=== PATIENT | male | born 1940 | race Caucasian/White ===

== ENCOUNTER → 2024-02-03 10:46 | Outpatient (REF) | payer MEDICARE, SELFPAY | LOC: RAD 10:46 | PROVIDERS: ATTENDING PHYSICIAN Internal Medicine Critical Care Medicine; FAMILY PHYSICIAN Physician Assistant Medical; REFERRING PHYSICIAN Internal Medicine Cardiovascular Disease | DX: R91.1 Solitary pulmonary nodule (principal) | CPT/HCPCS: 71250 ==

== ENCOUNTER → 2024-07-26 06:26 | Day surgery (SDC) | payer MEDICARE, SELFPAY | LOC: GI 06:26 | PROVIDERS: ATTENDING PHYSICIAN Surgery | DX: Z12.11 Encounter for screening for malignant neoplasm of colon (principal); R19.5 Other fecal abnormalities; D12.3 Benign neoplasm of transverse colon | CPT/HCPCS: 45385; 88305 ==

== ENCOUNTER 2025-01-15 16:03 | Emergency (ER) | payer MEDICARE, SELFPAY ==
[2025-01-15 16:08] VITALS: BP 171/86
--- NOTE | 2025-01-15 17:15 | ED.MUSCINJ ---
HPI-Injury
General
Chief Complaint: Musculo-Skeletal Complaint
Time Seen by Provider: 01/15/25 17:03
History of Present Illness-Injury
Initial Injury comments:
Patient presents to the emergency department with left knee pain after injury. States he was walking down the steps and felt a pop in the left knee. Since then he feels swelling in the knee and difficulty bearing weight. States he was having some
pain in that knee throughout the week but it was only mild. Denies fevers or chills. Denies calf swelling, chest pain or shortness of breath
Past History
Past History
ED Past Medical History: CAD, Cancer (Prostate cancer), HTN, Hypercholesterolemia and Other (BPH)
ED Past Surgical History: Cardiac (cath w/ stents)
Social History
Tobacco: Former smoker
Personal: Single
Living: alone
Employment: Employed
Phy Exam
Physical Exam
Physical Exam:
General: No acute distress
Head: NCAT
Neck, Normal in appearance, no swelling
Respiratory: No Respiratory distress
Abdomen: No distension
Ext: Left knee without any large effusion. There is pain with deep flexion and varus stressing of the knee. There is no laxity. Bindu and drawer testing is negative. Straight leg raise is intact. Pulses sensation and motor function all intact
Neuro: DE LEÓN, AOx4
Psych: Normal affect
Skin: Normal color
Injury Course
Orders/Labs/Results
Orders:
Orders
01/15/25 16:12
CR Knee - Left 4 Or More View* Urgent
Comment:
Reason For Exam: Injury
*Critical Care Note
Total Time (30-74mins, 75-104mins- exclusive of procedures): Not Applicable
ED Attending Note
ED Attending Note
ED Attending Note:
No fracture seen on x-ray. Suspect ligamentous or meniscus injury. Instructed to ice, elevate, apply compression to the knee and follow-up with orthopedics as an outpatient
-
Portions of this chart may have been created with voice recognition software.� Occasional wrong word or��sound alike� substitutions may have occurred due to the inherent limitations of voice recognition software.
Discharge Plan
Departure
Patient Disposition: Home (Routine Discharge)
Date of Disposition: 01/15/25
Time of Disposition: 18:32
Patient with high blood pressure during this ER visit?: Yes
Discharge Problem:
Knee sprain
Instructions: Knee Sprain (DC)
Prescriptions:
No Action
aspirin 81 MG tablet,delayed release (DR/EC)
81 mg PO QPM
metoprolol succinate 25 MG tablet extended release 24 hr
12.5 mg PO DAILY
multivitamin with folic acid [Tab-A-Carlos] 1 TABLET tablet
1 tab PO DAILY
coenzyme Q10 [Co Q-10] 100 MG capsule
100 mg PO DAILY
biotin 5 mg Tablet
5 mg PO DAILY
ascorbic acid (vitamin C) [Vitamin C] 500 mg Tablet
500 mg PO DAILY
tamsulosin 0.4 mg Capsule
0.4 mg PO QPM
acetaminophen [Tylenol] 325 mg Tablet
650 mg PO Q4HPRN PRN (Reason: mild pain)
lisinopril 40 mg Tablet
40 mg PO DAILY
azithromycin 500 mg tablet
500 mg PO DAILY 2 Days Qty: 5 0RF
cefdinir 300 mg capsule
300 mg PO BID Qty: 10 0RF
guaifenesin [Mucinex] 600 mg Tablet Extended Release 12hr
1,200 mg PO Q12 Qty: 14 0RF
Eliquis 5 mg tablet
5 mg PO BID Qty: 60 0RF
Rx Instructions:
take 10mg BID starting evening dose 11/06 for 11 more doses.
starting 11/12 decrease to 5mg BID
ferrous sulfate 324 mg (65 mg iron) tablet,delayed release (DR/EC)
324 mg PO DAILY Qty: 30 0RF
Referrals:
Mikael Ramos MD [Active] -
Marty Garza PA-C [Family Provider] -
Activity Restrictions/Additional Instructions:
Ice to the knee. Keep it elevated. Tylenol for pain. Follow-up with orthopedist. Use knee splint or adams wrap for compression and support
Interventions
Interventions:
*Risk Screen - Suicide Last Done: 01/15/25 17:18
*General Assessment Last Done: 01/15/25 17:18
*Neglect/Abuse Screening Last Done: 01/15/25 17:18
*ED- Fall Risk Assessment Last Done: 01/15/25 17:18
*ED COVID-19 Vaccine History Last Done: 01/15/25 17:18
*Nursing Disposition Last Done: 01/15/25 18:55
ED-Musculoskeletal Assessment Last Done: 01/15/25 17:18
Discharge Date and Time
Discharge Date/Time: 01/15/25 18:45
Print Language: [id number]
[2025-01-15 17:18] VITALS: BMI 25.1
[2025-01-15 18:55] VITALS: BP 142/83
== END 2025-01-15 18:45 | disposition home or self-care (01) ==
LOC: EMR 16:03
PROVIDERS: EMERGENCY PHYSICIAN Emergency Medicine; FAMILY PHYSICIAN Physician Assistant Medical
DX: S83.92XA Sprain of unspecified site of left knee, initial encounter (principal); X58.XXXA Exposure to other specified factors, initial encounter; Y93.01 Activity, walking, marching and hiking; E78.00 Pure hypercholesterolemia, unspecified; I10 Essential (primary) hypertension; I25.10 Atherosclerotic heart disease of native coronary artery without angina pectoris; N40.0 Benign prostatic hyperplasia without lower urinary tract symptoms; Z87.891 Personal history of nicotine dependence; Z85.46 Personal history of malignant neoplasm of prostate; Z95.5 Presence of coronary angioplasty implant and graft
CPT/HCPCS: 99283; 73564

== ENCOUNTER → 2025-06-13 08:04 | Outpatient (REF) | payer MEDICARE, SELFPAY | LOC: RCS 08:04 | PROVIDERS: ATTENDING PHYSICIAN Nurse Practitioner; FAMILY PHYSICIAN Physician Assistant Medical | DX: R42 Dizziness and giddiness (principal) | CPT/HCPCS: 93306 ==